=== PATIENT | female | born 1970 | race Caucasian/White ===

== ENCOUNTER 2021-10-31 12:27 | Outpatient (CLI) | payer OTHER | END 2021-10-31 12:44 | disposition home or self-care (01) | LOC: SONOGRAMA 12:27 | PROVIDERS: ATTEND General Practice | DX: E04.0 Nontoxic diffuse goiter (principal); Z68.33 Body mass index [BMI] 33.0-33.9, adult; E66.01 Morbid (severe) obesity due to excess calories; E28.310 Symptomatic premature menopause; E78.2 Mixed hyperlipidemia; Z13.1 Encounter for screening for diabetes mellitus; Z13.220 Encounter for screening for lipoid disorders; Z13.228 Encounter for screening for other metabolic disorders; Z13.29 Encounter for screening for other suspected endocrine disorder; E59 Dietary selenium deficiency; E55.9 Vitamin D deficiency, unspecified; E56.8 Deficiency of other vitamins ==

== ENCOUNTER 2022-11-24 13:04 | Outpatient (CLI) | payer OTHER | END 2022-11-24 13:07 | disposition home or self-care (01) | LOC: MAMO-SONO 13:04 | DX: N63.0 Unspecified lump in unspecified breast (principal); N60.09 Solitary cyst of unspecified breast; N64.4 Mastodynia ==

== ENCOUNTER 2023-06-03 16:49 | Emergency (ER) | payer OTHER ==
[~2023-06-03] VITALS: Ht 167.6 cm; Wt 83.9 kg
[2023-06-03] MEDS ORDERED: MOBIC7.5 MG PO (20:56)
== END 2023-06-03 21:06 | disposition home or self-care (01) ==
LOC: ER 16:49
DX: S60.222A Contusion of left hand, initial encounter (principal); V43.52XA Car driver injured in collision with other type car in traffic accident, initial encounter; Y93.89 Activity, other specified; Y92.413 State road as the place of occurrence of the external cause; S50.12XA Contusion of left forearm, initial encounter

== ENCOUNTER 2025-05-08 11:29 | Outpatient (CLI) | payer OTHER ==
[~2025-05-08 11:29] MED LIST: MOBIC7.5 MG PO
== END 2025-05-08 11:45 | disposition home or self-care (01) ==
LOC: MAMO-SONO 11:29
PROVIDERS: ATTEND General Practice
DX: Z12.31 Encounter for screening mammogram for malignant neoplasm of breast (principal); N93.9 Abnormal uterine and vaginal bleeding, unspecified